=== PATIENT | female | born 1965 | race Two or more races ===

== ENCOUNTER 2025-03-23 15:55 | Emergency (ER) | payer MEDICAID ==
[~2025-03-23] VITALS: Ht 157.5 cm; Wt 68.5 kg
[2025-03-23] MEDS ORDERED: NEOM10DR11 RIGHT EAR (17:35)
[2025-03-23] MEDS ORDERED: HYDR-3972 PO (17:35)
[2025-03-23] MEDS ORDERED: AMOX-430 PO (17:35)
[2025-03-23] MEDS ORDERED: AMOXICILLIN-CLAVUL 875-125MG TABLET ONE (17:52)
[2025-03-23] MEDS ORDERED: HYDROCODONE/APAP 5-325MG TABLET ONE (17:53)
[2025-03-23 17:59] VITALS: BP 129/70; O2SAT 99
[2025-03-23] MEDS: HYDROCODONE/APAP 5-325MG TABLET PO ONE (17:59)
[2025-03-23] MEDS: AMOXICILLIN-CLAVUL 875-125MG TABLET PO ONE (17:59)
== END 2025-03-23 17:59 | disposition home or self-care (01) ==
LOC: ER 15:55
DX: H60.501 Unspecified acute noninfective otitis externa, right ear (principal); H66.91 Otitis media, unspecified, right ear
CPT/HCPCS: A4606; A4663